=== PATIENT | female | born 1950 | race Two or more races ===

== ENCOUNTER 2021-09-23 05:59 | Emergency (ER) | payer MEDICARE, MEDICAID ==
[~2021-09-23] VITALS: Ht 160 cm; Wt 34.0 kg
[2021-09-23] MEDS ORDERED: IOHEXOL 350 MG/ML 100ML IJ ONE (06:18)
[2021-09-23] MEDS ORDERED: ASPirin 325 MG TAB PO ONE (07:45)
[2021-09-23 07:59] LABS: Basophils # (auto) 0 10 ^3/uL (0-0.2); Eosinophils # (auto) 0.1 10 ^3/uL (0-0.8); Lymphocytes # (auto) 0.9 10 ^3/uL (0.4-5.4); Monocytes # (auto) 0.6 10 ^3/uL (0-1.3); Nucleated Red Blood Cells % 0.1 %; White Blood Cell 5.9 10^3/uL (4.4-10.8)
[2021-09-23 08:01] LABS: Basophils % (auto) 0.6 % (0.0-2.0); Eosinophils % (auto) 1.6 % (0.0-7.0); Lymphocytes % (auto) 15.1 % (10.0-50.0); Mean Corpuscular Hemoglobin 33.2 pg (28.0-32.0); Mean Corpuscular Hgb Conc. 33.5 g/dL (32.0-36.0); Mean Corpuscular Volume 99.2 fL (80.0-100.0); Monocytes % (auto) 10.9 % (0.0-12.0); Neutrophils # (auto) 4.2 10 ^3/uL (1.6-8.6); Neutrophils % (auto) 71.8 % (37.0-80.0); Red Blood Cells 2.01 10^6/uL (4.0-5.20); Red Cell Distribution Width 14.5 % (11.8-14.3)
[2021-09-23 08:13] LABS: Albumin 2.2 g/dL (3.4-5.0); Calcium 8.3 mg/dL (8.5-10.1); Potassium 4.2 mmol/L (3.5-5.1)
[2021-09-23 08:14] LABS: INR 1.37 (0.9-1.15); Partial Thromboplastin Time 25.1 sec (23.6-33.0)
[2021-09-23 08:18] LABS: BUN/Creatinine Ratio 20.7; Bilirubin, Total 0.4 mg/dL (0.2-1.0); Hemoglobin 6.7 g/dL (12.2-16.2); Total Protein 7.9 g/dL (6.4-8.2)
[2021-09-23 08:50] VITALS: BP 122/66
== END 2021-09-23 09:03 | disposition short-term general hospital (02) ==
LOC: ER 05:59
DX: R53.1 Weakness (principal); Z85.07 Personal history of malignant neoplasm of pancreas; Z20.822 Contact with and (suspected) exposure to COVID-19
CPT/HCPCS: 36415; 70450; 70496; 70498; 71045; 80053; 83605; 84484; 85025; 85610; 85730; 87426; 93005; 99285; Q9967